=== PATIENT | female | born 1995 | race Hispanic/Latino ===

== ENCOUNTER 2023-05-21 01:10 | Emergency (ER) | payer OTHER ==
[~2023-05-21] VITALS: Ht 185.4 cm; Wt 81.6 kg
[2023-05-21 01:39] VITALS: O2SAT 100
[2023-05-21] MEDS ORDERED: ONDANSETRON HCL 4 MG ORAL DISINTEGRATING TAB ONE (01:53)
[2023-05-21] MEDS ORDERED: ONDANSETRON HCL 4 MG ORAL DISINTEGRATING TAB PO ONE (02:00)
[2023-05-21 02:15] LABS: CLARITY,URINE CLEAR (CLEAR); COLOR,URINE YELLOW (YELLOW); KETONES,URINE 2+ (NEGATIVE); LEUKOCYTE ESTERASE ,URINE NEGATIVE (NEGATIVE); NITRITE,URINE NEGATIVE (NEGATIVE); PROTEIN,URINE DIPSTICK NEGATIVE (NEGATIVE); URINE UROBILINOGEN 1 mg/dL (0.2 - 1)
[2023-05-21 02:24] LABS: BACTERIA,URINE FEW /HPF; EPITHELIAL CELLS,URINE FEW /LPF; RBC,URINE 0-5 /HPF (0-5); WBC,URINE (MAN) 0-5 /HPF (0-5)
[2023-05-21] MEDS ORDERED: ONDANSETRON ODT4 MG SL (02:42)
== END 2023-05-21 02:48 | disposition home or self-care (01) ==
LOC: ER 01:18
DX: O20.0 Threatened abortion (principal); O23.41 Unspecified infection of urinary tract in pregnancy, first trimester; N39.0 Urinary tract infection, site not specified; R10.31 Right lower quadrant pain
CPT/HCPCS: 81001; 87086; 99283; Q0162

== ENCOUNTER 2024-11-23 16:52 | Emergency (ER) | payer BC, OTHER ==
[~2024-11-23] VITALS: Ht 185.4 cm; Wt 81.6 kg
[~2024-11-23 16:52] MED LIST: ONDANSETRON ODT4 MG SL
[2024-11-23] MEDS ORDERED: CEPHALEXIN500 MG PO (17:27)
[2024-11-23 17:41] VITALS: PULSE 78; RESP 18; TEMP 98.4; O2SAT 98
== END 2024-11-23 17:40 | disposition home or self-care (01) ==
LOC: ER 17:06
DX: T23.161A Burn of first degree of back of right hand, initial encounter (principal); X15.8XXA Contact with other hot household appliances, initial encounter; Y93.G3 Activity, cooking and baking; Y92.89 Other specified places as the place of occurrence of the external cause; F17.210 Nicotine dependence, cigarettes, uncomplicated
CPT/HCPCS: 99283